=== PATIENT | male | born 1965 | race Caucasian/White ===

== ENCOUNTER 2021-02-05 21:39 | Emergency (ER) | payer BC ==
[~2021-02-05] VITALS: Ht 170.2 cm; Wt 68.0 kg
== END 2021-02-06 00:55 | disposition home or self-care (01) ==
LOC: ER 21:39
DX: T15.00XA Foreign body in cornea, unspecified eye, initial encounter (principal); W26.8XXA Contact with other sharp object(s), not elsewhere classified, initial encounter
CPT/HCPCS: 99282; A9270